=== PATIENT | female | born 1995 | race Hispanic/Latino ===

== ENCOUNTER 2021-12-18 04:15 | Emergency (ER) | payer OTHER ==
[~2021-12-18] VITALS: Ht 162.6 cm; Wt 62.6 kg
[2021-12-18] MEDS ORDERED: LIDOCAINE 4% PATCH TP STA (04:20)
[2021-12-18] MEDS ORDERED: ACETAMINOPHEN 325 MG TAB PO ONE (04:30)
[2021-12-18 04:42] LABS: CLARITY,URINE CLOUDY (CLEAR); COLOR,URINE YELLOW (YELLOW); KETONES,URINE NEGATIVE (NEGATIVE); LEUKOCYTE ESTERASE ,URINE SMALL (NEGATIVE); NITRITE,URINE NEGATIVE (NEGATIVE); PROTEIN,URINE DIPSTICK NEGATIVE (NEGATIVE); URINE UROBILINOGEN 0.2 mg/dL (0.2 - 1)
[2021-12-18 04:47] LABS: BACTERIA,URINE MODERATE /HPF; EPITHELIAL CELLS,URINE FEW /LPF; WBC,URINE (MAN) 21-50 /HPF (0-5)
[2021-12-18] MEDS ORDERED: CEPHALEXIN500 MG PO (04:51)
[2021-12-18] MEDS ORDERED: CEFPODOXIME PR200 MG PO (04:53)
== END 2021-12-18 05:10 | disposition home or self-care (01) ==
LOC: ER 04:25
DX: N39.0 Urinary tract infection, site not specified (principal); Z79.890 Hormone replacement therapy
CPT/HCPCS: 81001; 81025; 87086; 87186; 99282